=== PATIENT | male | born 1985 | race Caucasian/White ===

== ENCOUNTER 2024-07-27 21:46 | Emergency (ER) | payer MEDICAID ==
[~2024-07-27] VITALS: Ht 177.8 cm; Wt 95.3 kg
[2024-07-27 22:23] VITALS: TEMP 98.4
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
[2024-07-27] MEDS ORDERED: HYDROCODONE/APAP 5/325MG TABLET ONE (22:42)
[2024-07-27] MEDS ORDERED: LIDOCAINE HCL/MPF 1% 30 ML VIAL IJ ONE (22:43)
[2024-07-27] MEDS: HYDROCODONE/APAP 5/325MG TABLET PO ONE (22:44)
[2024-07-27] MEDS ORDERED: AMOX/CLAVULANATE 875 MG TABLET PO ONE (23:30)
[2024-07-27] MEDS ORDERED: AMOX-430 PO (23:41)
[2024-07-28 00:15] VITALS: BP 139/78; O2SAT 98
--- NOTE | 2024-07-28 00:15 | NUR ---
Patient discharged to home in stable condition. Written and verbal after care instructions given. Patient verbalizes understanding of instruction.
== END 2024-07-28 00:15 | disposition home or self-care (01) ==
LOC: ER 21:51
DX: S02.2XXA Fracture of nasal bones, initial encounter for closed fracture (principal); S01.112A Laceration without foreign body of left eyelid and periocular area, initial encounter; J45.909 Unspecified asthma, uncomplicated; F31.9 Bipolar disorder, unspecified; Z79.899 Other long term (current) drug therapy; Y04.8XXA Assault by other bodily force, initial encounter; Y93.89 Activity, other specified; Y92.89 Other specified places as the place of occurrence of the external cause; Y99.8 Other external cause status
CPT/HCPCS: 12011; 70450; 70486; 72125; 99284; J3490

== ENCOUNTER 2024-08-16 09:58 | Emergency (ER) | payer MEDICAID, OTHER ==
[~2024-08-16] VITALS: Ht 188 cm; Wt 83.9 kg
[~2024-08-16 09:58] MED LIST: AMOX-430 PO
[2024-08-16] MEDS ORDERED: LORAZEPAM INJ 2 MG/ML VIAL ONE (10:18)
[2024-08-16] MEDS ORDERED: OLANZAPINE 10 MG VIAL IM ONE ×2 (10:18→21:44)
[2024-08-16] MEDS: LORAZEPAM INJ 2 MG/ML VIAL IM ONE (10:29)
[2024-08-16] MEDS: OLANZAPINE 10 MG VIAL IM ONE ×2 (10:30→21:55)
[2024-08-16 11:27] LABS: BASOPHILS % (AUTO) 0.1 % (0.0-2.0); HEMATOCRIT 42 % (39-51); HEMOGLOBIN 13.5 g/dL (13.5-17.5); LYMPHOCYTES # (AUTO) 1.4 K/uL (0.8-4.8); LYMPHOCYTES % (AUTO) 11.8 % (20.0-44.0); MEAN CORPUSCULAR HEMOGLOBIN 27 PG (26.0-33.0); MEAN CORPUSCULAR HGB CONC 32 g/dl (31.0-36.0); MEAN CORPUSCULAR VOLUME 83 fL (80-96); MONOCYTES # (AUTO) 0.6 K/uL (0.1-1.30); MONOCYTES % (AUTO) 5.5 % (2.0-12.0); NEUTROPHILS # (AUTO) 9.6 K/uL (1.8-8.9); NEUTROPHILS % (AUTO) 82.6 % (43.0-81.0); PLATELET COUNT (AUTO) 322 K/uL (150-450); RED BLOOD CELL COUNT(AUTO) 5.06 MIL/uL (4.5-6.0); RED CELL DISTRIBUTION WIDTH 15.5 % (11.5-15.0); WHITE BLOOD COUNT (AUTO) 11.7 K/uL (4.3-11.0)
[2024-08-16 11:40] LABS: ALANINE AMINOTRANSFERASE 22 U/L (12-78); ALBUMIN 3.9 g/dL (3.4-5.0); ALCOHOL, BLOOD < 3 mg/dL (0-10); ALKALINE PHOSPHATASE 85 U/L (46-116); ASPARTATE AMINOTRANSFERASE 38 U/L (15-37); BILIRUBIN,DIRECT 0.2 mg/dL (0.0-0.2); CALCIUM, SERUM 9.4 mg/dL (8.5-10.1); CARBON DIOXIDE 24 mmol/L (21-32); CHLORIDE 106 mmol/L (98-107); CREATININE 1.2 mg/dL (0.6-1.3); GLUCOSE 95 mg/dL (74-106); POTASSIUM 3.6 mmol/L (3.5-5.1); SODIUM SERUM 142 mmol/L (136-145); TOTAL PROTEIN, SERUM 7.8 g/dL (6.4-8.2); UREA NITROGEN, BLOOD 14 mg/dL (7-18)
[2024-08-16 11:53] LABS: ACETAMINOPHEN <10 ug/ml (10-30); SALICYLATE 2.5 mg/dL (2.8-20.0)
[2024-08-16] MEDS ORDERED: LORAZEPAM 1 MG TABLET ONE (16:23)
[2024-08-16 16:25] LABS: APPEARANCE,URINE CLEAR (CLEAR); BILIRUBIN,URINE 2+ (NEGATIVE); BLOOD, URINE NEGATIVE Ery/uL (NEGATIVE); COLOR,URINE YELLOW (YELLOW); KETONES,URINE 1+ mg/dL (NEGATIVE); LEUKOCYTE ESTERASE ,URINE NEGATIVE (NEGATIVE); NITRITE, URINE NEGATIVE (NEGATIVE); PROTEIN,URINE 2+ mg/dl (NEGATIVE); UGLUCOSE NEGATIVE (NEGATIVE)
[2024-08-16 16:31] LABS: ADD URINE CULTURE NO; BACTERIA,URINE None seen /HPF (None Seen); MUCUS,URINE Many /LPF (None Seen); RBC,URINE 0-2 /HPF (0-2); URINE AMORPHOUS URATE Few /HPF (None Seen); WBC,URINE 0-2 /HPF (0-3)
[2024-08-16] MEDS: LORAZEPAM 1 MG TABLET PO ONE (16:32)
[2024-08-16 16:37] LABS: AMPHETAMINE, URINE NEGATIVE (NEGATIVE); BARBITURATE, URINE NEGATIVE (NEGATIVE); BENZODIAZEPINE, URINE NEGATIVE (NEGATIVE); COCCAINE, URINE NEGATIVE (NEGATIVE); OPIATE, URINE NEGATIVE (NEGATIVE); PHENCYCLIDINE SCREEN,URINE NEGATIVE (NEGATIVE)
[2024-08-16 16:47] LABS: CANNABINOID, URINE POSITIVE (NEGATIVE)
[2024-08-16] MEDS ORDERED: WATER FOR INJECTION,STERILE 10 ML ONE (21:48)
[2024-08-17 09:08] VITALS: BP 123/84; TEMP 98.4; O2SAT 98
== END 2024-08-17 15:12 ==
LOC: ER 10:00
DX: F19.10 Other psychoactive substance abuse, uncomplicated (principal); F29 Unspecified psychosis not due to a substance or known physiological condition; J45.909 Unspecified asthma, uncomplicated; F31.9 Bipolar disorder, unspecified; Z20.822 Contact with and (suspected) exposure to COVID-19
CPT/HCPCS: 99285; 96372; 85025; 80048; 80076; 81001; 36415; 87426; 80143; 80320; 80307; 98960; J2060; J3490 ×2; G0480